=== PATIENT | female | born 1995 | race Caucasian/White ===

== ENCOUNTER 2017-05-19 12:37 | Emergency (ER) | payer OTHER ==
[~2017-05-19] VITALS: Ht 167.6 cm; Wt 86.2 kg
[2017-05-19 13:15] VITALS: BP 122/80
--- NOTE | 2017-05-19 13:22 | ED GENERAL ADULT ---
History of Present Illness General Chief Complaint: General Adult Stated Complaint: ALLERGIC REACTION Source: patient Exam Limitations: no limitations Vital Signs & Intake/Output Vital Signs & Intake/Output Vital Signs Date Time Temp Pulse Resp B/P B/P Pulse O2 O2 Flow FiO2 Mean Ox Delivery Rate 05/19 1322 99 Room Air 05/19 1315 96.8 70 18 122/80 99 Room Air Allergies Coded Allergies: NO KNOWN ALLERGIES (05/19/17) Reconcile Medications Prednisone 10 MG TABLET 1 TAB PO DAILY ALLERGIC REACTION 4 TABS PO X 3 DAYS, 3 TABS PO X 3 DAYS, 2 TABS PO X 3 DAYS, 1TAB PO X 3 DAYS Triage Note: PT TO ED FOR ?ALLERGIC RXN TO AMOXICILLIN, FLUSHED AND RASH TO CHEST AND HANDS. STATING SHE WAS ON AMOXICILLIN FOR 8 DAYS AND BEGAN TO HAVE A RXN YESTERDAY, DENIES THROAT TIGHTNESS OR ITCHINESS. Triage Nurses Notes Reviewed? yes Onset: Gradual Duration: day(s): (2) Timing: no prior history Injury Environment: home Severity: moderate Severity Numbers: 7 Modifying Factors: Improves With: medication (BENADRYL). Associated Symptoms: RASH : No Patient currently breastfeeds: No HPI: Patient is a 21-year-old female presenting to the emergency department with chief complaint of rash that is pruritic in nature that started yesterday evening. Patient was currently on day 8 of amoxicillin, treated for strep throat. No history of allergic reaction to this in the past. Denies any shortness of breath or sensation of throat closing. Denies any nausea vomiting fevers or chills. No chest pain or palpitations. She took Benadryl last night with some relief. Denies any other new exposures. She was unsure if strep was confirmed with the rapid strep that was done or if they treated her symptomatically. She reports that the sore throat has improved significantly. Denies any fevers or chills. (Melecio AGOSTO,Michelle) Past History Travel History Traveled to [place] past 21 day No Medical History Any Pertinent Medical History? see below for history Neurological: NONE EENT: NONE Cardiovascular: NONE Respiratory: NONE Gastrointestinal: NONE Hepatic: NONE Renal: NONE Musculoskeletal: NONE Psychiatric: NONE Endocrine: NONE Blood Disorders: NONE Cancer(s): NONE Surgical History Surgical History: non-contributory Psychosocial History What is your primary language Tristanian Tobacco Use: Never used ETOH Use: denies use Illicit Drug Use: denies illicit drug use Family History Hx Contributory? No (Michelle Campos) Review of Systems Review of Systems Constitutional: Reports: no symptoms. Comments Review of systems: See HPI, All other systems negative. Constitutional, no chills fever or weight loss HEENT: No visual changes no congestion Cardiovascular: No chest pain ,palpitation , orthopnea or ankle swelling Skin, no jaundice Respiratory: No dyspnea cough sputum or hemoptysis GI: No nausea no vomiting : No dysuria No hematuria Muscle skeletal: no back pain, no neck pain, Neurologic: No numbness no confusion, no headaches Psych: No stress anxiety or depression,. Heme/endocrine: No bruising no bleeding no polyuria or polydipsia Immunology: No splenectomy or history of AIDS (Michelle Campos) Physical Exam Physical Exam General Appearance: well developed/nourished, no apparent distress, alert, awake , comfortable Comments: Well-developed well-nourished person in no acute distress HEENT:Pupils equally round and reactive to light and accommodation. Nose is atraumatic. External auditory canal and Tympanic membranes clear. Pharynx is moderately erythematous, tonsillar enlargement bilaterally, uvula midline.. Clearing secretions without difficulty. Neck: Supple, no lymphadenopathy, normal range of motion without pain or tenderness ABDOMEN: No palpable enlargement of the spleen or liver. No tenderness to palpation over the entire abdomen. No rebound or guarding. Bowel sounds throughout, normal active. Cardiovascular: Regular rate and rhythms no murmurs rubs or gallops, normal JVP Respiratory: Chest nontender. No respiratory distress.breath sounds clear to auscultation bilaterally Extremity: No edema Neuro: Alert oriented x3 Skin: Diffuse erythematous maculopapular rash noted over the face, trunk and upper extremities. Blanchable. Psych: Mood and affect is normal, memory and judgment is normal. Core Measures ACS in differential dx? No CVA/TIA Diagnosis: No Sepsis Present: No Sepsis Focused Exam Completed? No (Michelle Campos) Progress Differential Diagnoses I considered the following diagnoses in my evaluation of the patient: ALLERGIC REACTION, CONTACT DERMATITIS, IRRITANT DERMATITIS, MONONUCLEOSIS Plan of Care: Orders Procedure Date/time Status MONOSPOT 05/19 1322 Complete Laboratory Tests 02/25/18 1329: Infectious [place] Titer POSITIVE Patient informed of positive mono. She'll continue with prednisone taper and follow-up with her primary care physician. She'll stop taking amoxicillin. Educated on precautions while having mono. Patient nontoxic. Initial ED EKG: none (Michelle Campos) Departure Departure Time of Disposition: 1320 Disposition: HOME OR SELF CARE Condition: Stable Clinical Impression Primary Impression: Allergic reaction Qualifiers: Encounter type: initial encounter Qualified Code: T78.40XA - Allergy, unspecified, initial encounter Secondary Impressions: Mononucleosis Referrals: Antoinette Tang MD Additional Instructions: FOLLOW UP WITH YOUR PRIMARY CARE DOCTOR, CALL TO MAKE APPT. RETURN FOR WORSENING SYMPTOMS OR CONCERNS. TAKE OVER THE COUNTER BENADRYL PRESCRIBED. TAKE PREDNISONE PRESCRIBED. No contact sports for the next 6 weeks. Increase fluids. Departure Forms: Customer Survey General Discharge Information Prescriptions: Current Visit Scripts Prednisone 1 TAB PO DAILY #30 TAB 4 TABS PO X 3 DAYS, 3 TABS PO X 3 DAYS, 2 TABS PO X 3 DAYS, 1TAB PO X 3 DAYS (Michelle Campos) PA/CANAL BOAT OPERATOR Co-Sign Statement Statement: ED Attending supervision documentation- [] I saw and evaluated the patient. I have also reviewed all the pertinent lab results and diagnostic results. I agree with the findings and the plan of care as documented in the PA's/CANAL BOAT OPERATOR's documentation. [X] I have reviewed the ED Record and agree with the PA's/CANAL BOAT OPERATOR's documentation. [] Additions or exceptions (if any) to the PAs/CANAL BOAT OPERATOR's note and plan are summarized below: [] (Shola Santamaria DO) Critical Care Note Critical Care Note Critical Care Time: non-applicable (Michelle Campos)
[2017-05-19] MEDS ORDERED: PREDNISONE10 M2 PO (13:25)
== END 2017-05-19 14:19 ==
LOC: ERH 12:37
DX: T78.40XA Allergy, unspecified, initial encounter (principal); B27.90 Infectious mononucleosis, unspecified without complication